=== PATIENT | male | born 1995 | race Caucasian/White ===

== ENCOUNTER 2016-06-28 08:48 | Inpatient (IN) | payer OTHER ==
[~2016-06-28] VITALS: Ht 175.3 cm; Wt 80.6 kg
--- NOTE | ~2016-06-28 | RESCARESUM ---
"PATIENT: IRINA WATSON | | [facility] UNIT #: [id number] | [address] AGE/SEX: 21 M : [birth year] | [address] | [place] [id number] ADMIT/REG DATE: 06/28/16 | ROOM: [facility] LOC: ADTC | ADTC | Summary of Residential Care Primary Counselor: ALAN Khanna, ANAM, LUANNET Date of Admission: 06/28/16 Date of Discharge: 07/19/16 Referral Source: [facility] and Probation Primary Care Provider Prior to Admission: Sona Douglas Therapist, [facility] Admitting Diagnosis: F12.20 Cannabist Use Disprder Severe, F15.20 Meth Use Disorder Severe, F10.20 Alcohol Use Disorder Severe Discharge Diagnosis: Same Goals Achieved: Client completeed a step one and did a good job looking at how he is powerless over drugs and how his life is unmanagable due to his using and drinking. Client completed a getting started in treatment packet and identified strengths and things to work on to imrove. Client looked at anger issues. Client did not complete feelings letters to his mom, dad or sister. Letter to his girl friend was minimal. Client left before he could so any relapse work. Continued Obstacles to Sobriety/Relapse Issues: Client was placed on contract to stay away from a female he ws spending too much time with after he was talked to about then continued to hang around with her. Client may struggle wit hbeing too over confident with his soberity thinking he can relax. Family Issues Addressed: No family issues were addressed. y Individual Therapy y Group Therapy y Educational Series on Substance Abuse n Parents/Significant Others Attended Family Program n Acute Medical Problems During the Course of Treatment n Transferred to Hospital During the Course of Treatment y Accepting of Substance Abuse Problem n Non-accepting of Substance Abuse Problem n Required Psychological or Psychiatric Consultation During the Course of Treatment Completed AA Step # one During This Level of Care Significant Incidences During Treatment: Client was placed on contract for spending too much time with a female peer after he was talked to about that. Reason For Discharge: n Completed Residential TX Goals and Ready For Next Level of Care y Left Tx Against Medical Advice/Treatment Goals Not Complete PATIENT: IRINA WATSON | | [facility] UNIT #: [id number] | [address] AGE/SEX: 21 M : [birth year] | [address] | [place] [address] ADMIT/REG DATE: 06/28/16 | ROOM: [facility] LOC: ADTC | [facility] | Summary of Residential Care n Completed Residential Tx Goals But Refusing Continuing Care Recommendations y Discharged Due to Noncompliance/Treatment Goals not Completed y Discharged Earlier Than Planned Due to: Leaving AMA Continuing Care Plan/Recommendations: n Intensive Partial Care y Sponsor n Partial Care y AA Meetings/NA Meetings y Outpatient n Co-dependency Services n Therapeutic Community n 1/[address] n [address] [facility] n Mental Health Therapy n Marriage Counseling n Other Specific Continuing Care Plan: Client left AMA before he was discharged. Mechelle back to [facility] was talked about and he has an appointment on 07/27/16 @ 2:00 pm. PRIMARY COUNSELOR: Walt Velazco, ALAN, LADC, CSAT"
--- NOTE | ~2016-06-28 | TXPLANREV ---
"PATIENT: IRINA WATSON | | [facility] UNIT #: [id number] | [address] AGE/SEX: 21 M : [birth year] | [address] | [place] [address] ADMIT/REG DATE: 06/28/16 | ROOM: [facility] LOC: ADTC | ADTC | Treatment Plan/Staffing Review Date: 07/15/16 Treatment plan was reviewed and determined appropriate as written: Yes Treatment plan was reviewed and the following changes/addition/deletions are necessary: No changes Discharge plans were reviewed and determined appropriate as previously documented: Yes Discharge plans were reviewed and determined to be as follows: Yes Client is schedulded to discharge on 07/26/16 and will go back to his counselor at [facility] in [place]. Other pertinent issues discussed during this staffing review include: Client had a problem with following redirection. He was named leader prior to hat and then was removed from the position and placed on contract to stay away from female peers. Staff Present: Claudine Cervantes, Olena Williamson, Chasity Guy, Betina Carlisle, Liat Foote PRIMARY COUNSELOR: Walt Velazco, ALAN, ANAM, CSAT Client Signature Counselor Signature Date Time "
--- NOTE | ~2016-06-28 | CLPRLASSUM ---
"PATIENT: IRINA WATSON | | [facility] UNIT #: [id number] | [address] AGE/SEX: 21 M : [birth year] | [address] | [place] [address] ADMIT/REG DATE: 06/28/16 | ROOM: [facility] LOC: ADTC | ADTC | Client Problem List/Assessment Summary Date: 07/02/16 Problems identified by the client: Drinking and drug use. Problems identified by significant others: Anger, stress and relapse issues. Client's Strengths: Still young. Problem List: Code: T Client's method of expressing anger is frequently harmful to self and/or others and/or property and is made worse by substance abuse. Code: T Client needs to identify relapse warning signs and develop a plan to deal with them as they arise. Code: T Client has learned to deny or stuff feelings; needs to learn to identify and process feelings with safe people to acquire the necessary skills to maintain half-way sobriety. Code Menendez: T: to be addressed during course of treatment O: problem noted, expected to resolve itself with abstinence--specific tx plan not required R: problem noted, will be referred upon discharge PRIMARY COUNSELOR: Walt Velazco, ALAN, LADC, CSAT"
--- NOTE | ~2016-06-28 | INDIVTXPLN ---
"PATIENT: IRINA WATSON | | [facility] UNIT #: [id number] | [email or web address] AGE/SEX: 21 M : [birth year] | [address] | [place] [address] ADMIT/REG DATE: 06/28/16 | ROOM: [facility] LOC: ADTC | ADTC | Individualized Treatment Plan Date: 07/01/16 Problem Statement/Issue Identified: I continue to use drugs in spite of the negative consequences I am experiencing. Goal: I want to learn about my addiction and identify consequences of my use and learn to work the AA/NA program. Objectives/Activities to achieve goal: 1. I will read and fill out the Getting Started packet, identifying my feelings about being in treatment and identifying things I do now and things I need to work on as evidenced by his progress notes. Due Date:07/05/16 Complete: Incomplete: 2. I will read a Step 1 booklet and fill out a Step 1 packet identifying 20+ ways I have hurt others and compromised my values (page 10 - 11 of Step 1). This will also help me see how I am powerless and that my life has become unmanageable. I will share it with my counselor and selected parts in group as evidenced by individual and group notes. Due Date:07/05/16 Complete: Incomplete: 3. I will talk at a minimum of 2 meetings a week and get a phone number of a male sponsor I can call while I am in treatment on weekends. I will report my progress to my counselor as evidenced by individual notes. Due Date:On going Complete: Incomplete: 4. I will create gratitude list and add one thing to it each day. Due Date: Ongoing Complete: Incomplete: Client signature Date Counselor signature Date Outcome/Measurement of Progress Towards Goal: Counselor's signature Date "
--- NOTE | ~2016-06-28 | INDIVTXPLN ---
"PATIENT: IRINA WATSON S | | [facility] UNIT #: [id number] | [address] AGE/SEX: 21 M : [birth year] | [address] | [place] [address] ADMIT/REG DATE: 06/28/16 | [facility] | Individualized Treatment Plan Date: 07/05/16 Problem Statement/Issue Identified: I struggled dealing with anger in a negitive manner. Goal: I want to be able to deal with twisting frame changer in a positive manner. Objectives/Activities to achieve goal: 1. I will read and complete an anger packet identiyin my anger ques so I can defuse the situation before it gets out of control. Due Date:07/08/16 Complete: Incomplete: Client signature Date Counselor signature Date Outcome/Measurement of Progress Towards Goal: Counselor's signature Date "
--- NOTE | ~2016-06-28 | INDIVTXPLN ---
"PATIENT: IRINA WATSON | | [facility] UNIT #: [id number] | [address] AGE/SEX: 21 M : [birth year] | [address] | [place] [address] ADMIT/REG DATE: 06/28/16 | [facility] | Individualized Treatment Plan Date: 07/15/16 Problem Statement/Issue Identified: I struggling identifying and sharing my feelings. Goal: I want to be able to share my feelings after I have identified them. Objectives/Activities to achieve goal: 1. I will write feelings letters to my mom, dad and girl friend. [facility] and in group. Due Date:07/20/16 Complete: Incomplete: Client signature Date Counselor signature Date Outcome/Measurement of Progress Towards Goal: Counselor's signature Date "
--- NOTE | ~2016-06-28 | TXPLANREV ---
"PATIENT: IRINA WATSON | | [facility] UNIT #: [id number] | [address] AGE/SEX: 21 M : [birth year] | [address] | [place] [address] ADMIT/REG DATE: 06/28/16 | ROOM: [facility] LOC: ADTC | ADTC | Treatment Plan/Staffing Review Date: 07/08/16 Treatment plan was reviewed and determined appropriate as written: Yes Treatment plan was reviewed and the following changes/addition/deletions are necessary: No changes Discharge plans were reviewed and determined appropriate as previously documented: Yes Discharge plans were reviewed and determined to be as follows: Client is scheduled to discharge on 07/26/16 and will do aftercare in [place]. Other pertinent issues discussed during this staffing review include: Client appears to be doing well. Staff Present: Claudine Dick Connie Strand PRIMARY COUNSELOR: Walt Velazco, ALAN, ANAM, CSAT Client Signature Counselor Signature Date Time "
--- NOTE | 2016-06-28 11:06 | NUR ---
ADMISSION NOTE Rights/Responsibilities: Copy given and explained to client. Signed and accepted by client. Client oriented to physical lay out of the ADTC unit, given Big Book and admission packet. A Hakeem was assigned. Jimmie Client is a 21yr old single male. Referred by probation. Lives in [place], [place]. Brought to tx by s/o. DOC, alcohol, last used 04/12/16, 750L weekly. Allergies: PCN, Meds: none. Was searched no contraband found. Initial paperwork given and guidelines gone over. Doctor was notified.
--- NOTE | 2016-06-28 14:32 | NUR ---
IAnahi. 1 Hr/Client shared this is his first tx and he wnts to get all he can from here. He did asy rafats to get on the sexual offender list for sleeping with a seventeen year old girl. Would like to work on stress and relapse issues.
--- NOTE | 2016-06-28 18:10 | NUR ---
Education: 1 Hour. Client attended "Adult Children of Alcoholics" lecture presented by staff.
--- NOTE | 2016-06-28 23:16 | NUR ---
tech note: Client played a game for recreation & attended onsite NA meeting. Client was checked into his-not seen by the DR. Client gave his first intro. SE: coming to treatment.
--- NOTE | 2016-06-29 04:31 | NUR ---
BED NOTE: Client was in bed, motionless with eyes closed all three bed checks.
--- NOTE | 2016-06-29 11:36 | NUR ---
A.M. 1.5 hr res group/ratio 1:10/ Assignments shared were a how to get started and a letter to self. Discussion focused on resenting self, forgivness, feeling afraid and out of place and believing in self. This client participated and shared he used to use meth and swithced to alcohol and found many problems with it also.
--- NOTE | 2016-06-29 16:00 | NUR ---
Relapse Prevention, 1.0 hours, Client attended and actively participated in relapse prevention education which focused on internal and external triggers.
--- NOTE | 2016-06-29 16:34 | NUR ---
Tech Note: Client participated in Nutritional Services presentation and is working on the Big Book.
--- NOTE | 2016-06-29 22:41 | NUR ---
Education: 1 hour lecture given by counselor on co-dependency
--- NOTE | 2016-06-29 22:47 | NUR ---
Tech note: clients played catchphrase for rec, participated in guided meditation and attended AA meeting SE: 1st full day
--- NOTE | 2016-06-30 04:35 | NUR ---
bed note: client was in bed with eyes closed and motionless at all bed checks.
--- NOTE | 2016-06-30 09:51 | NUR ---
Tech notes: Client is working on Step 1
--- NOTE | 2016-06-30 09:53 | NUR ---
Recovery 101 1 hr/ Clients all were asked to share what they worked on in treatment or past treatments that really helped them and/or their experience with working an AA/NA program of recovery-what went well. This client was attentive.
--- NOTE | 2016-06-30 12:47 | NUR ---
AM GROUP 9:02/21 1.5 HR: Peers participated in ORIENTATION OF THIS AND ANOTHER NEW PEERS TO GROUP GUIDELINES, PURPOSE, GOALS AND OBJECTIVES. Client identified meth as his DOC, but said he had been clean for 8 months on his own prior to his relapse on alcohol. He then revealed that he was in [facility] part of that time. Client said he hopes to gain some more effective skills and a better understanding while he is here. Group heard several process assignments/issues. Much of the focus was on how deeply kids are affected by a parent"s chemical use, even if the kids don't directly see it. This client remained attentive, but was mostly quiet.
--- NOTE | 2016-06-30 13:14 | NUR ---
Education note: Client attended educational speaker David Casillas
--- NOTE | 2016-06-30 17:32 | NUR ---
SPIRITUAL EDUCATION 1 HR. Today we used music to invoke discussion, symbolize how it can be either positive spirituality or negative spirituality, and discussed the feelings. We used one song that depicted addiction, one that talked about recovery, and since we are close to Mother's Day, one that depicted addiction in parents and forgiveness.
--- NOTE | 2016-06-30 18:16 | NUR ---
Education: 1 Hour. Client attended "Boudaries" lecture given by staff.
--- NOTE | 2016-06-30 22:51 | NUR ---
Tech Note: Client played a game for rec, and attended The on unit N.A.Meeting. SE: Rec
--- NOTE | 2016-07-01 04:29 | NUR ---
Bed Note: Client was in bed with eyes closed and motionless at all bed checks.
--- NOTE | 2016-07-01 09:59 | NUR ---
Cely. 1 Hr/Client shared some of his GS packet and his BPS wa covered. Client appears eagewr to do well adn make positive changes in his life.
--- NOTE | 2016-07-01 10:00 | NUR ---
Family contact/Clients mom and SO were contacted adn identified anger abuse and relapse issues to work on neither were sure they could cvome for family.
--- NOTE | 2016-07-01 12:42 | NUR ---
Group 1.5 Hr Ratio 1:9/Topics today were a collage, two step ones, a getting startred and feelings letters. Client shared how he could relate to what clients were sharing from assignments and issues.
--- NOTE | 2016-07-01 15:58 | NUR ---
step education 1 hr/ Focus was on step 3 of the 12 steps Made a decision to turn our will and lives over to God. Each person were given questions to answer on paper and then to share and discuss. This client participated.
--- NOTE | 2016-07-01 18:15 | NUR ---
Education 1HR: Clt watched video called "Predator part 1" by Steve Lee with staff present.
--- NOTE | 2016-07-01 23:02 | NUR ---
Tech Note: Client took a walk for rec and attended the A.A.Meeting. Client was seen by doctor. SE: All Day
--- NOTE | 2016-07-01 23:20 | NUR ---
1:00 pm. Education Note: Client watched video "Inside the Addictive Personality"
--- NOTE | 2016-07-02 04:06 | NUR ---
Bed Note: Client was in bed and motionless at all bed checks.
--- NOTE | 2016-07-02 12:01 | NUR ---
Group 1.5 hr Ratio 1:10/Topics today were Orientation a new client to group rules and goals, a con game packet and a letter to a family member. Client shared how he could relate to what peers were sharing.
--- NOTE | 2016-07-02 14:31 | NUR ---
PEER REVIEWS 1.5 HRS: Clt participated in peer review process and was able to give open and honest feedback to those receiving a review.
--- NOTE | 2016-07-02 15:38 | NUR ---
Tech Note: Client participated in group walk and watched "Marijuana" by Steve Lee. Assignment being worked on is Step 1.
--- NOTE | 2016-07-02 23:10 | NUR ---
Tech note: Client played games and watched movies. Client walked to an offsite AA meeting.
--- NOTE | 2016-07-03 03:57 | NUR ---
Bed note: Client was in bed with eyes closed and no distress at all bed checks
--- NOTE | 2016-07-03 16:44 | NUR ---
Tech Note: Client went to A.A.Meeting at [address]. Client also went on walk and had visit. Client is working on Step one.
--- NOTE | 2016-07-03 21:54 | NUR ---
Tech note: Client's were just starting to grill around 6pm so we did not have rec this evening. Client walked to an offsite AA meeting, played games and watched movies. SE; Family
--- NOTE | 2016-07-04 04:44 | NUR ---
tech note: client was motionless in no distress at all bed checks.
--- NOTE | 2016-07-04 17:23 | NUR ---
Tech Note: Client participated in Big Book study. Client attended denominational. Client stated that he is working on reading the Big Book.
--- NOTE | 2016-07-04 23:15 | NUR ---
tech note: Client participated in community clean. Client was seen with his feet on the furniture & was cross talking & being disruptive during the client meeting. SE: Chairing [facility].
--- NOTE | 2016-07-05 04:23 | NUR ---
tech note: client was motionless in no distress at all bed checks.
--- NOTE | 2016-07-05 11:30 | NUR ---
Experiential Group 1.5 hr/ Clients all participated in looking at family dynamics and feelings through sculpturing and participated with feedback, relating and/or role-playing. This client related to his dad raising him, mom left them when he started Jr.High, he knows he owes ammends to his dad as broke his trust (stold from him?) He said he did all the chores and kept a clean house.
--- NOTE | 2016-07-05 15:36 | NUR ---
I.S. 1 hr/Client shared the rest of his GS packet and did a good job. Said step one really opened his eyes to what he had been doing that was not good. Client is working on finishing his step one an dwill work on anger.
--- NOTE | 2016-07-05 16:18 | NUR ---
RECOVERY 101 1 HR/ Clients all filled out 30 question sheet on consequences of their use, looking at every chemical they have used to help see powerlessness and not minimize any chemicals they have abused. Clients learned about early stages and definition of addiction. This client was involved.
--- NOTE | 2016-07-05 17:33 | NUR ---
Tech Note: Client went for an outdoor walk in the afternoon. Client stated that he is working on Step One.
--- NOTE | 2016-07-05 20:46 | NUR ---
Education 1 HR: Clt listened to lecture given by counselor on communication.
--- NOTE | 2016-07-05 23:01 | NUR ---
Client played a game for rec and attended the on site N.A.Meeting SE: Group/Ольга
--- NOTE | 2016-07-06 04:57 | NUR ---
Bed Note: Client was in bed and motionless at all bed checks
--- NOTE | 2016-07-06 11:43 | NUR ---
GROUP 1.5 HRS. 1:11 Client participated in orienting new peer to purpose and rules of group. Group discussion included the progression of the addiction and the effects on family and lives including suicide attempts. Peer processed goodbye letter to addiction and discussed the need to end the relationship. This client also had assignment to process but time did not permit.
--- NOTE | 2016-07-06 15:09 | NUR ---
Tech Note: Client joined group for afternoon walk, listened to speaker from [facility] and is working on Step 1 and the Big Book.
--- NOTE | 2016-07-06 15:47 | NUR ---
Tech Note: Client attended Relapse Prevention education with Claudine.
--- NOTE | 2016-07-06 19:50 | NUR ---
Education: 1 hour lecture on STD/AID/HIV [facility] by [facility].
--- NOTE | 2016-07-06 22:23 | NUR ---
Tech note : Client worked on [employer] crafts and get well cards. Client participated in guided meditation and went to an onsite AA meeting.
--- NOTE | 2016-07-07 04:14 | NUR ---
Bed note: Client was in bed with eyes closed and no distress at all bed checks
--- NOTE | 2016-07-07 11:10 | NUR ---
Tech Note: Client is working on an Anger Packet.
--- NOTE | 2016-07-07 11:30 | NUR ---
GROUP 1.5 HRS. 1:10 Group discussion included issues and conflict between peers on the unit. Client processed HOW TO GET STARTED IN TREATMENT as assigned. Peer shared step 1 assignment identifying how values are betrayed in addiction. Client owned that he too had been guilty of discounting one peer's feedback as peer confronted that he had witnessed it.
--- NOTE | 2016-07-07 13:18 | NUR ---
Tech Note: Client walked in the hallways for afternoon exercise.
--- NOTE | 2016-07-07 13:22 | NUR ---
Education One Hour: Client heard from members of the recovery community, who shared their experience, strength and hope.
--- NOTE | 2016-07-07 17:26 | NUR ---
SPIRITUAL EDUCATION 1 HR. Topics today were orienting newcomers and then broke into groups and did presentations on their sections from TOWARDS SPIRITUALITY.
--- NOTE | 2016-07-07 18:45 | NUR ---
Education: 1 hour lecture given by counselor on "Disease concept".
--- NOTE | 2016-07-07 22:18 | NUR ---
Tech note: Client played catch phrase for rec and attended an onsite NA meeting. SE: NA
--- NOTE | 2016-07-08 04:59 | NUR ---
Bed note: Client was in bed with eyes closed and no distress at all bed checks.
--- NOTE | 2016-07-08 08:46 | NUR ---
Cely. 1 hr/Client shared his step one and did a good job. He is working on feelings letters now.
--- NOTE | 2016-07-08 10:37 | NUR ---
Tech Note; Client participated in light stretching for morning exercise. Client stated that he is working on reading the Big Book.
--- NOTE | 2016-07-08 11:30 | NUR ---
AM GRP 1.5 HRS, Ratio 1:12/ Clt participated in grp discussion on various topics, including having fun in recovery, how addiction hurts everyone around them, and what to do just to stay in recovery. This clt participated, and stated he knows for his recovery, he needs to come clean w/ an aunt and uncle about stealing some guns.
--- NOTE | 2016-07-08 16:00 | NUR ---
Step Education 1 hr/Focus was on step 4 making a searching and fearless moral inventory of ourselves. Handed out some questions each person answered on paper and then we discussed. This person participated.
--- NOTE | 2016-07-08 16:19 | NUR ---
Education 1 Hour: Client heard from two members of the recovery community, who shared their experience strength and hope.
--- NOTE | 2016-07-08 20:23 | NUR ---
Education: 1 Hour. Client attended Hernandez Payne "Unhealthy Families" video.
--- NOTE | 2016-07-08 22:56 | NUR ---
Client went on a walk for rec, participated in guided meditation, and attended the on unit A.A.Meeting. SE: Counselor session/Group
--- NOTE | 2016-07-09 05:33 | NUR ---
tech note: client was motionless in no distress at all bed checks.
--- NOTE | 2016-07-09 14:39 | NUR ---
Tech Note: Client joined our group walk for exercise. Watched video titled "Sound of Silence" and is working on Feelings Letters.
--- NOTE | 2016-07-09 15:40 | NUR ---
PEER REVIEWS 1.25 HRS: Clt participated in peer reviews and took a risk to give open and honest feedback to those receiving a review.
--- NOTE | 2016-07-09 15:56 | NUR ---
Group 1.5 hr/ 12:1 Clients heard peers share GS and Step 1 packets, this client was attentive and shared STep 1. Client did good job owning values he compromised and people his addiction hurt. He feels comfortable clean and sober working 60 hours and doing counselng and probation classes and meetings, indicated he likes to stay busy.
--- NOTE | 2016-07-09 20:26 | NUR ---
TECH NOTE: Client participated in reading of guidelines, watched TV/movies and attended optional off site AA meeting SE: group
--- NOTE | 2016-07-10 04:31 | NUR ---
BED NOTE: Client was in bed, motionless with eyes closed all bed checks.
--- NOTE | 2016-07-10 16:14 | NUR ---
Tech Note: Client is working on Feelings Letters.
--- NOTE | 2016-07-10 20:18 | NUR ---
Tech note: Clt played a game for recreation and attended offsite AA mtg. Played cards, used phone and watched tv. SE was phone calls.
--- NOTE | 2016-07-11 04:24 | NUR ---
BED NOTE: Client was in bed motionless with eyes closed all three bed checks.
--- NOTE | 2016-07-11 15:42 | NUR ---
Tech Note: Client participated in Big Book study. Client stated that he is working on writing feelings letters.
--- NOTE | 2016-07-11 22:56 | NUR ---
Tech Note: Client attended the A.A.Panel with Herbert Nice Client also attended the STRATE[employer]IC [employer]NERSHIP REPRESENTATIVE meeting SE: All Day
--- NOTE | 2016-07-12 04:36 | NUR ---
Client was laying in bed and motionless at all bed checks.
--- NOTE | 2016-07-12 07:51 | HP ---
ADMIT: 06/28/2016 RM/LOC: Kyung [facility] MR#: [id number] [address] [facility] [address] [place] [id number] AYDIN WATSON [address] [place] [address] History and Physical SEX: M AGE: 21 : 1995 DATE OF SERVICE: CHIEF COMPLAINT: Drug and alcohol dependency. HISTORY OF PRESENT ILLNESS: Aydin is a 21-year-old, single, white male, admitted to residential level treatment at [facility] on June 28, 2016. He presents to treatment after being on probation for a theft by unlawful taking and sexual assault and had possession of meth charges dropped and had failed for Breathalyzer for alcohol and requests to go to treatment. Aydin's drug of choice on admission is methamphetamines. He first started using meth at 15 years of age with friends. He states he initially used it 2- 3 times a week. He states within the 6 months, he was doing it daily. He would use 2-3 g a day. He states the last year, he was using up to two eight balls a day when he smoked and snorted meth. Denies any IV use. His last meth use was July 19, 2015. He admits to dealing from [age] years of age. Second drug of choice is cannabis. He first started using pot at 13 years of age with friends. In [place], he smoked about 0.25 ounce a week. He states he would smoke pot before during and after school. His heaviest use was the last year. He states he smoked up to 8 ounce a week. His last marijuana use was July 19, 2015. Third drug of choice is alcohol. He first started drinking at 17 years of age. He states he drank hard liquor about twice a month. He states since February, he started drinking two or three 40-ounce coke 45 drinks per week. He states he failed a total 4 Breathalyzers. Prior to coming to treatment, he was drinking two or three 40 ounce coke 45 daily. His last drink was April 20, 2016. He admits to using cocaine twice and acid 4-5 times. PAST MEDICAL HISTORY: Unremarkable. ILLNESSES: None. MEDICATIONS: None. ALLERGIES: PENICILLIN. SOCIAL HISTORY: A 21-year-old, single, white male. He is unemployed. He lives with his fiancee in [place] and smokes about a pack a day. FAMILY HISTORY: Cancer in maternal uncle who has been in recovery for alcohol for about 4 years. REVIEW OF SYSTEMS: Remarkable for some tender lymph nodes in his left groin. PHYSICAL EXAMINATION: VITAL SIGNS: Stable. His 5 feet 9 inches, weight of ADMIT: 06/28/2016 RM/LOC: [id number] MR#: [id number] [address] [id number] AYDIN WATSON [address] [facility] [address] [place] [address] History and Physical SEX: M AGE: 21 : 1995 80 kg, blood pressure 138/79 with pulse 57, and temp 94.5. GENERAL APPEARANCE: A 21-year-old male who is alert, oriented, appears his stated age. HEENT: Pupils reactive. Extraocular muscle intact. TMs normal. Throat normal. NECK: Normal. HEART: Regular without murmur. LUNGS: Clear. ABDOMEN: Soft, nontender, benign. and RECTAL: Deferred. He has some tender swollen glands in his left groin. EXTREMITIES: No clubbing, cyanosis, edema, or tracks. NEURO: Exam is normal including light touch, strength, and DTRs. ASSESSMENT: 1. Alcohol use disorder, severe. 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 2. Cannabis use disorder, severe in early remission. 3. Reactive lymphadenopathy. 4. Tobacco use disorder. 5. Antisocial personality traits. PLAN: We will place him on Keflex for his lymphadenitis. Proceed with drug and alcohol abuse dependency treatment and counseling and further evaluation and management based on his course during hospitalization. Zelalem Ly MD/ zaira JOB #: [id number] CC: Zelalem Ly, Attending Physician NO FAMILY PHYSICIAN, Family Physician
--- NOTE | 2016-07-12 09:41 | NUR ---
Tech note: Client is working on Fl's and mtg with rubio
--- NOTE | 2016-07-12 12:54 | NUR ---
Education Note: Clients attended speaker for education Kit J.
--- NOTE | 2016-07-12 15:55 | NUR ---
PEER REVIEWS 1.25 HRS: Clt participated in peer reviews and took a risk to give open and honest feedback to those receiving a review.
--- NOTE | 2016-07-12 17:00 | NUR ---
FAMILY EDUCATION 3 HRS. Client attended alone and took part in the discussion on the family roles, codependency and detachment. He related to hero, scapegoat and mascot roles.
--- NOTE | 2016-07-12 18:18 | NUR ---
Education: 1 Hour. Client attended "Feelings" lecture presented by staff.
--- NOTE | 2016-07-12 21:00 | NUR ---
FAMILY GROUP 8:1/ HR: Client, attending family members and peers heard several peers and their loved ons process FEELINGS LETTERS. Much of the focus was on the drastic changes that take place in the individual's personality when they injest chemicals. Much of the emphasis became the need to rebuild trust which will take time. This client attended alone and remained active throughout with feedback. Client related to others who shared about being basically on their own through out their young lives, sharing that he was on his own by age 16.
--- NOTE | 2016-07-12 23:01 | NUR ---
tech note: client attended Family session. SE: Family/
--- NOTE | 2016-07-13 04:45 | NUR ---
tech note: client was motionless in no distress at all bed checks.
--- NOTE | 2016-07-13 14:48 | NUR ---
Cely. 1 Hr/Client shared he is struggling with his feelings letters but will start on them now. Doing well and is liking tx. Also said he is staying away from female peer.
--- NOTE | 2016-07-13 15:06 | NUR ---
A.M. 1.5 hr group/ratio 03/03/ Group heard a step 1, how to get started, grief letter and discussed the importants of not glorifying as one client was confronted on this. This client was mostly quiet until called on and then he said how he could relate.
--- NOTE | 2016-07-13 15:49 | NUR ---
Relapse Prevention, 1.0 hours, Client attended and actively participated in relapse prevention education which focused on compulsive behaviors and relapse.
--- NOTE | 2016-07-13 16:06 | NUR ---
Tech Note: Client watched Part 2 of Predator by Steve Lee and had Relapse Prevention for 3:00 education. Assignment being worked on: Feelings Letters.
--- NOTE | 2016-07-13 16:22 | NUR ---
Education Note: Client attended Relapse Prevention presented by counselor Nicolette.
--- NOTE | 2016-07-13 20:16 | NUR ---
Education: 1 hour lecture given by counselor on relapse.
--- NOTE | 2016-07-13 20:23 | NUR ---
tech note: Client went for walk for rec, participated in guided meditation and attended AA meeting
--- NOTE | 2016-07-13 23:28 | NUR ---
Tech Note: Client went on a walk for rec and attended the on unit A.A.Meeting. Client participated in Guided Meditation at 1930. SE: Sana
--- NOTE | 2016-07-14 04:54 | NUR ---
Bed note: client was in bed with eyes closed and no distress at all bed checks.
--- NOTE | 2016-07-14 10:17 | NUR ---
Tech notes: Client is working on Fl's
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
--- NOTE | 2016-07-14 17:18 | NUR ---
SPIRITUaL EDUCATION 1 HR. Clients were oriented to the group and learned difference between spirituality and rastafari. We addressed GRATITUDE today with discussion, worksheet and activity.
--- NOTE | 2016-07-14 18:21 | NUR ---
Education: 1 Hour. Client attended "Self Esteem" lecture presented by staff.
--- NOTE | 2016-07-14 23:10 | NUR ---
tech note: client went on a walk for recreation & attended the onsite NA meeting. Client was seen tipping in his chair during the NA meeting. SE: JONNIE.
--- NOTE | 2016-07-15 05:08 | NUR ---
Bed Note: Clt lay motionless in bed with eyes closed showing no distress at all bed checks.
--- NOTE | 2016-07-15 09:04 | NUR ---
I.S. 1 hr/Client shared a feelings letter to his dad adn did ok other than stating what his dad was feeling. Client said his dad told him what he felt. Questionable? Client wrote a letter stating what he is willing to do and why he wants tx and did ok with it.
--- NOTE | 2016-07-15 11:08 | NUR ---
Tech Note: Client participated in Spiritual Enrichment. Client stated that he is working on writing Feelings Letters.
--- NOTE | 2016-07-15 11:30 | NUR ---
AM GRP 1.5 HRS, Ratio 1:11/ Clt sat mostly quiet, agreeing several times, throwing in some ways he related. He was attentive.
--- NOTE | 2016-07-15 16:46 | NUR ---
FAMILY EDUCATION 3 HRS. Client attended alone and took part in the discussion on the disease concept. Client shared consequences of his addiction which are signficant at his young age.
--- NOTE | 2016-07-15 19:14 | NUR ---
Education 1 Hour: Client heard a presentation on marijuana.
--- NOTE | 2016-07-15 22:09 | NUR ---
Education 1 HR: Clt watched video by Elmer "Leida John" with staff present.
--- NOTE | 2016-07-15 22:30 | NUR ---
Tech Note: Clt walked for recreation, attended GM and onsite AA mtg. SE was AA and family
--- NOTE | 2016-07-16 04:44 | NUR ---
Bed Note: Clt lay motionless in bed with eyes closed showing no distress at all bed checks.
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
--- NOTE | 2016-07-16 15:56 | NUR ---
PEER REVIEWS 1.25 HRS: Clt participated in peer reviews and took a risk to give open and honest feedback to those receiving a review.
--- NOTE | 2016-07-16 16:11 | NUR ---
Tech Note: Client listened to speaker Rob Allison and is working on Feelings Letters and Relapse Prevention.
--- NOTE | 2016-07-16 20:38 | NUR ---
Tech note: client watched TV and movies. Walked to optional offiste AA meeting. SE:peer review
--- NOTE | 2016-07-17 04:55 | NUR ---
Bed note: Client was in bed with eyes closed and no distress at all bed checks.
--- NOTE | 2016-07-17 16:47 | NUR ---
Tech Note: Client attended the A.A.Meeting at [address] [place] [address] and is working on Relapse Prevention.
--- NOTE | 2016-07-17 22:44 | NUR ---
Tech note: Client walked around the park a few times for rec. Client walked to an off site AA meeting. SE: Family
--- NOTE | 2016-07-18 05:00 | NUR ---
Bed note: client was in bed with eyes closed and no distress at all bed checks.
--- NOTE | 2016-07-18 15:27 | NUR ---
TECH NOTE: Client participated in big book study, attended protestant, completed chores and watched tv/movies. Had visitors
--- NOTE | 2016-07-18 23:12 | NUR ---
tech note: Client participated in Community Clean. Client attended [facility] meeting,played cards,talked on the phone & worked on bead project. SE: ORLIN.
--- NOTE | 2016-07-19 04:44 | NUR ---
Bed note: client was in bed with eyes closed and no distress at all bed checks.
--- NOTE | 2016-07-19 14:56 | NUR ---
Tech note: Client is working on Relapse prevention
--- NOTE | 2016-07-19 21:55 | NUR ---
DISCHARGE NOTE Clt left tx after phone call from s/o who had been taken to the ER. Clt had talked with on-call counselor before making this decision and had been told leaving would be AMA. Clt took all belongings with him upon leaving and signed AMA form. Left tx at 2145 hrs.
--- NOTE | 2016-08-28 11:43 | DS ---
ADMIT: 06/28/2016 RM/LOC: Kyung [facility] MR#: [id number] [address] [facility] [address] [place], [place] [id number] AYDIN WATSON [address] [place] [address] General Discharge Summary SEX: M AGE: 21 : 1995 ADMISSION DATE: 06/28/2016 DISCHARGE DATE: 07/19/2016 CHIEF COMPLAINT: Drug and alcohol dependency. INDICATION FOR HOSPITALIZATION: Aydin is a 21-year-old, single, white male, admitted to residential level treatment at [facility] on June 28, 2016. Admitting on probation for theft by unlawful taking, sexual assault, and having possession of meth charges dropped with failed breathalyzer for alcohol was referral to treatment. Aydin's drug of choice on admission is methamphetamines. Second drug of choice is cannabis. Third drug of choice is alcohol. Please see his admission H and P for the details regarding his history of present illness, past medical history, physical exam, and assessment at time of hospitalization. HOSPITAL COURSE: On admission, Aydin was admitted to our residential level treatment young. Given his history of alcohol use, he was started on multivitamin and thiamine. Later Keflex was added for reactive inguinal lymphadenopathy. His primary counselor assigned during his treatment program was Walt Velazco. During treatment, he underwent individual and group therapy sessions on drug and alcohol abuse and dependency. No family issues were addressed during the family portion of his treatment program. He completed an educational series on substance abuse. He completed step 1 of Alcoholics Anonymous. He was overall accepting of substance abuse problems. Relapse triggers were identified and relapse prevention plan was outlined. Reason for discharge was leaving treatment against medical advice. He had struggles with compliance and was discharged earlier than anticipated. Discharge recommendations include completion of residential level treatment goal, sponsor assignment, outpatient counseling with active AA and NA meeting involvement. Note, he left treatment against medical advice and was going back to [facility] at discharge. LABORATORY AND X-RAY DATA: During treatment, none. DISCHARGE MEDICATIONS: None. ADMIT: 06/28/2016 RM/LOC: Kyung [facility] MR#: [id number] [address] [address] AYDIN WATSON [address] [place] [address] General Discharge Summary SEX: M AGE: 21 : 1995 FINAL DISCHARGE DIAGNOSES: Include: 1. Alcohol use disorder, severe. 2. 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 3. Cannabis use disorder, severe in early remission. 4. Reactive lymphadenopathy. 5. Tobacco use disorder. 6. Antisocial personality traits. PROCEDURES: Include failed attempts at drug and alcohol abuse dependency treatment with the patient leaving against medical advice prior to completion of residential level treatment. Zelalem Ly MD/ zaira JOB #: [id number] CC: Zelalem Ly MD, Attending Physician FAMILY PHYSICIAN, Family Physician
== END 2016-07-19 21:59 | disposition left against medical advice (07) | DRG 894 ==
LOC: ADTC 10:02
PROVIDERS: ADMIT Family Medicine
PROC: HZ34ZZZ Individual Counseling for Substance Abuse Treatment, Interpersonal (ICD-10-PCS; principal; 2016-06-28)
PROC: HZ43ZZZ Group Counseling for Substance Abuse Treatment, 12-Step (ICD-10-PCS; principal; 2016-06-28)
DX: F10.20 Alcohol dependence, uncomplicated (principal); F60.2 Antisocial personality disorder; F15.21 Other stimulant dependence, in remission; F12.21 Cannabis dependence, in remission; R59.1 Generalized enlarged lymph nodes; F17.210 Nicotine dependence, cigarettes, uncomplicated; Z56.0 Unemployment, unspecified; Z65.3 Problems related to other legal circumstances